=== PATIENT | female | born 1965 | race Caucasian/White ===

== ENCOUNTER 2022-06-10 09:15 | Day surgery (SDC) | payer OTHER ==
[2022-06-08 13:50] VITALS: BMI 30.1
[2022-06-10 11:42] VITALS: TEMP 97.8
[2022-06-10 12:15] VITALS: BP 124/66; PULSE 65; RESP 18
== END 2022-06-10 12:24 | disposition home or self-care (01) ==
LOC: FASU-ENDO 09:15
PROVIDERS: ATTEND Internal Medicine
PROC: 0DJD8ZZ Inspection of Lower Intestinal Tract, Via Natural or Artificial Opening Endoscopic (ICD-10-PCS; principal; 2022-06-10 11:04)
DX: K57.30 Diverticulosis of large intestine without perforation or abscess without bleeding (principal); K64.8 Other hemorrhoids